=== PATIENT | male | born 1975 | race American Indian/Alaskan Native ===

== ENCOUNTER 2017-09-26 08:04 | Outpatient (CLI) | payer OTHER ==
--- NOTE | 2017-09-26 08:28 | XRay Report ---
RIGHT KNEE RADIOGRAPHS INDICATION: Right knee pain. COMPARISON: None similar. FINDINGS: Standing AP, lateral, oblique and sunrise views of the right knee demonstrate mild degenerative spurring involving the medial corners, tibial spines and the inferior patellar articular pole. Slight medial compartment narrowing possible. Articulation otherwise preserved. No suprapatellar effusion. Few soft tissue calcifications project posterior to the fibula. CONCLUSION: Mild right knee osteoarthrosis, as described. Thank you for the opportunity to participate in this patient's care.
== END 2017-09-26 08:05 | disposition home or self-care (01) ==
LOC: SPVIMAG 08:04
PROVIDERS: ATTEND Orthopaedic Surgery
DX: M17.11 Unilateral primary osteoarthritis, right knee (principal)